=== PATIENT | female | born 2000 | race Hispanic/Latino ===

== ENCOUNTER 2019-10-24 17:18 | Emergency (ER) | payer OTHER ==
[2019-10-24 19:28] LABS: Urine Blood NEGATIVE (NEG); Urine Glucose NEGATIVE (NEG); Urine Protein NEGATIVE (NEG); Urine pH 7.5 (5.0-7.0)
[2019-10-24 19:52] LABS: Basophils % 0.6 % (0-1.3); Hematocrit 38.4 % (36.0-45.0); Lymphocytes % 21.1 % (15.3-44.8); MPV 7.7 fL (7.6-11.3); RBC Red Blood Cell Count 4.34 M/uL (3.86-4.86)
[2019-10-24 20:05] LABS: ALT/SGPT 24 U/L (12-78); AST/SGOT 25 U/L (15-37); Albumin 3.7 g/dL (3.4-5.0); Alkaline Phosphatase 96 U/L (45-117); BUN Blood Urea Nitrogen 8 mg/dL (7-18); Bicarbonate 25 mmol/L (21-32); Bilirubin Direct < 0.1 mg/dL (0-0.2); Bilirubin Total 0.3 mg/dL (0.2-1.0); Glucose Level 107 mg/dL (74-106); Lipase 67 U/L (73-393); Potassium 3.6 mmol/L (3.5-5.1); Protein, Total 7.2 g/dL (6.4-8.2); Sodium Level 139 mmol/L (136-145)
--- NOTE | 2019-10-24 21:22 | EDPHYS ---
Physician Documentation [facility] Name: Nan Paniagua Age: 19 yrs Sex: Female : 2000 Arrival Date: 10/24/2019 Time: 17:22 Bed 5 Private MD: out of town, doctor ED Physician Jesus Armenta HPI: 10/23 21:02 This 19 yrs old Female presents to ER via Ambulatory with complaints of tw4 Abdominal Pain. 21:16 The patient presents with abdominal pain right lower quadrant, in the left lower tw4 quadrant. Onset: The symptoms/episode began/occurred 2 week(s) ago. The symptoms do not radiate. Associated signs and symptoms: none. The symptoms are described as sharp. Modifying factors: The symptoms are alleviated by remaining still, the symptoms are aggravated by movement. Severity of pain: At its worst the pain was moderate in the emergency department the pain is unchanged. The patient has not experienced similar symptoms in the past. The patient has not recently seen a physician. 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 - Social history:: Smoking status: Patient reports the use of cigarette tobacco products, smokes one-half pack cigarettes per day. ROS: 21:16 Constitutional: Negative for fever, chills, and weight loss, Eyes: Negative for injury, tw4 pain, redness, and discharge, Cardiovascular: Negative for chest pain, palpitations, and edema, Respiratory: Negative for shortness of breath, cough, wheezing, and pleuritic chest pain, Back: Negative for injury and pain, MS/Extremity: Negative for injury and deformity, Skin: Negative for injury, rash, and discoloration, Neuro: Negative for headache, weakness, numbness, tingling, and seizure. 21:16 Abdomen/GI: Positive for abdominal pain. 21:17 : Positive for urinary symptoms. tw4 Exam: 21:17 Constitutional: This is a well developed, well nourished patient who is awake, alert, tw4 and in no acute distress. Head/Face: Normocephalic, atraumatic. Chest/axilla: Normal chest wall appearance and motion. Nontender with no deformity. No lesions are appreciated. Cardiovascular: Regular rate and rhythm with a normal S1 and S2. No gallops, murmurs, or rubs. Normal PMI, no JVD. No pulse deficits. Respiratory: Lungs have equal breath sounds bilaterally, clear to auscultation and percussion. No rales, rhonchi or wheezes noted. No increased work of breathing, no retractions or nasal flaring. Back: No spinal tenderness. No costovertebral tenderness. Full range of motion. MS/ Extremity: Pulses equal, no cyanosis. Neurovascular intact. Full, normal range of motion. Neuro: Awake and alert, GCS 15, oriented to person, place, time, and situation. Cranial nerves II-XII grossly intact. Motor strength 5/5 in all extremities. Sensory grossly intact. Cerebellar exam normal. Normal gait. 21:17 Abdomen/GI: Inspection: abdomen appears normal, Bowel sounds: normal, Palpation: moderate abdominal tenderness, in the right lower quadrant and left lower quadrant. Vital Signs: 18:02 BP 105 / 66; Pulse 74; Resp 15 S; Temp 97.4(TE); Pulse Ox 100% on R/A; Weight 61.23 kg ca1 (R); Height 5 ft. 3 in. (160.02 cm) (R); Pain 6/10; 19:05 BP 110 / 63; Pulse 70; Resp 18; Pulse Ox 99% on R/A; ea 20:44 BP 103 / 56; Pulse 58; Resp 18; Pulse Ox 99% ; ea 21:20 BP 106 / 59; Pulse 60; Resp 18; Pulse Ox 98% on R/A; ea 18:02 Body Mass Index 23.91 (61.23 kg, 160.02 cm) ca1 MDM: 19:06 Patient medically screened. tw4 21:18 Differential diagnosis: Dysmenorrhea, Ectopic , non-specific abd pain, Ovarian tw4 Torsion, Tubal Ovarian Abcess, Ureterolithiasis, urinary tract infection. Data reviewed: vital signs, nurses notes. Data interpreted: Pulse oximetry: Interpretation: normal. Test interpretation: by ED physician or midlevel provider: not applicable. Counseling: I had a detailed discussion with the patient and/or guardian regarding: the historical points, exam findings, and any diagnostic results supporting the discharge/admit diagnosis. Special discussion: Based on the patient's Hx, exam, and Dx evaluation, there is no indication for emergent surgery or inpatient Tx. It is understood by the patient/guardian that if the Sx's persist or worsen they need to return immediately for re-evaluation. I discussed with the patient/guardian in detail that at this point there is no indication for admission to the hospital. It is understood, however, that if the symptoms persist or worsen the patient needs to return immediately for re-evaluation. 10/23 19:03 Order name: Urine --Ancillary (enter results); Complete Time: 21:29 tt3 10/23 19:03 Order name: Urine Dipstick--Ancillary (enter results); Complete Time: 21:29 tt3 10/23 19:07 Order name: Basic Metabolic Panel; Complete Time: 21:29 10/23 19:07 Order name: CBC with Diff; Complete Time: 21:29 ea 10/23 19:07 Order name: Hepatic Function; Complete Time: 21:29 ea 10/23 19:07 Order name: Lipase; Complete Time: 21:29 10/23 19:07 Order name: Basic Metabolic Panel 10/23 19:07 Order name: CBC with Diff 10/23 19:07 Order name: Hepatic Function 10/23 19:07 Order name: Abdomen 1 View (KUB) XRAY 10/23 20:00 Order name: CT Abd/Pelvis - IV Contrast Only 10/23 19:07 Order name: IV Saline Lock; Complete Time: 19:38 tw10/23 19:07 Order name: Labs collected and sent; Complete Time: 19:38 Administered Medications: 21:18 Drug: TORadol 30 mg Route: IVP; Site: right antecubital; ea 21:35 Follow up: Response: No adverse reaction ea Disposition: 10/24/19 21:21 Discharged to Home. Impression: Other ovarian cysts. - Condition is Stable. - Discharge Instructions: Ovarian Cyst. - Prescriptions for Ibuprofen 800 mg Oral Tablet - take 1 tablet by ORAL route every 8 hours As needed take with food; 30 tablet. Tylenol- Codeine #3 300-30 mg Oral Tablet - take 2 tablet by ORAL route every 6 hours As needed; 6 tablet. - Medication Reconciliation Form, Thank You Letter, Antibiotic Education, Prescription Opioid Use form. - Follow up: Private Physician; When: Upon discharge from the Emergency Department; Reason: Recheck today's complaints, Continuance of care, Re-evaluation by your physician. - Problem is new. - Symptoms have improved. Signatures: Dispatcher [employer] Ethel Cordero RN RN ea Wadley, Terrence, MD MD tw4 Karen Gonzalez RN RN ca1 Corrections: (The following items were deleted from the chart) 19:09 19:08 LIPASE+C.LAB.BRZ ordered. [facility] 19:38 19:07 IV Saline Lock ordered. mirna 19:38 19:07 Labs collected and sent ordered. mirna bradley 21:17 21:02 The patient presents with abdominal pain in the epigastric area, tw4 tw4 21:36 21:21 10/24/2019 21:21 Discharged to Home. Impression: Other ovarian cysts. Condition ea is Stable. Forms are Medication Reconciliation Form, Thank You Letter, Antibiotic Education, Prescription Opioid Use. Follow up: Private Physician; When: Upon discharge from the Emergency Department; Reason: Recheck today's complaints, Continuance of care, Re-evaluation by your physician. Problem is new. Symptoms have improved. tw4
--- NOTE | 2019-10-24 21:22 | ER ---
Nurse's Notes [facility] Name: Nan Paniagua Age: 19 yrs Sex: Female : 2000 Arrival Date: 10/24/2019 Time: 17:22 Bed 5 Private MD: out of town, doctor Diagnosis: Other ovarian cysts Presentation: 10/23 18:02 Chief complaint: Patient states: Lower abdominal and groin area pain about 2 weeks now. ca1 It has gotten worse and starting to get unbearable. Denies V/Diarrhea. Reports Nausea. Reports burning with urination. Denies fever. Coronavirus screen: Proceed with normal triage. Patient denies a cough. Patient denies shortness of breath or difficulty breathing. Patient denies measured and/or subjective temperature greater than 100.4F prior to today's visit. Patient denies travel on a cruise ship or to a country the [facility] currently lists as an affected area. Patient denies contact with known and/or suspected case of COVID-19. Ebola Screen: Patient negative for fever greater than or equal to 101.5 degrees Fahrenheit, and additional compatible Ebola Virus Disease symptoms Patient denies exposure to infectious person. Patient denies travel to an Ebola-affected area in the 21 days before illness onset. No symptoms or risks identified at this time. Initial Sepsis Screen: Does the patient meet any 2 criteria? No. Patient's initial sepsis screen is negative. Does the patient have a suspected source of infection? No. Patient's initial sepsis screen is negative. Risk Assessment: Do you want to hurt yourself or someone else? Patient reports no desire to harm self or others. Onset of symptoms was October 24, 2019. 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 - Social history:: Smoking status: Patient reports the use of cigarette tobacco products, smokes one-half pack cigarettes per day. Screenin:04 Abuse screen: Denies threats or abuse. Nutritional screening: No deficits noted. ea Tuberculosis screening: No symptoms or risk factors identified. Fall Risk None identified. Assessment: 19:03 General: Appears in no apparent distress. Behavior is appropriate for age. Pain: ea Complains of pain in left lower quadrant. Neuro: Level of Consciousness is awake, alert, obeys commands, Oriented to person, place, time, situation. Cardiovascular: Patient's skin is warm and dry. GI: Bowel sounds present X 4 quads. Abdomen is tender to palpation in left lower quadrant Reports constipation. : Reports burning with urination. Derm: Skin is pink, warm \T\ dry. 20:15 Reassessment: Patient and/or family updated on plan of care and expected duration. Pain ea level reassessed. Patient is alert, oriented x 3, equal unlabored respirations, skin warm/dry/pink. Pt taken to CT. 21:34 Reassessment: Patient and/or family updated on plan of care and expected duration. Pain ea level reassessed. Patient is alert, oriented x 3, equal unlabored respirations, skin warm/dry/pink. Discharge instruction given to patient, verbalized the understanding of instruction. Pt left ED ambulatory tolerating well. Vital Signs: 18:02 BP 105 / 66; Pulse 74; Resp 15 S; Temp 97.4(TE); Pulse Ox 100% on R/A; Weight 61.23 kg ca1 (R); Height 5 ft. 3 in. (160.02 cm) (R); Pain 6/10; 19:05 BP 110 / 63; Pulse 70; Resp 18; Pulse Ox 99% on R/A; ea 20:44 BP 103 / 56; Pulse 58; Resp 18; Pulse Ox 99% ; ea 21:20 BP 106 / 59; Pulse 60; Resp 18; Pulse Ox 98% on R/A; ea 18:02 Body Mass Index 23.91 (61.23 kg, 160.02 cm) ca1 ED Course: 17:22 Patient arrived in ED. mr 17:22 out of town, doctor is Private Physician. mr 18:04 Triage completed. ca1 18:05 Arm band placed on right wrist. ca1 18:58 Mekhi Renner, RN is Primary Nurse. bp 19:04 Patient has correct armband on for positive identification. Bed in low position. Call ea light in reach. Side rails up X 1. 19:06 Jesus Armenta MD is Attending Physician. tw4 19:54 Abdomen 1 View (KUB) XRAY In Process Unspecified. EDMS 20:30 CT Abd/Pelvis - IV Contrast Only In Process Unspecified. EDMS 21:30 IV discontinued, intact, bleeding controlled, No redness/swelling at site. Pressure ea dressing applied. 21:35 No provider procedures requiring assistance completed. ea Administered Medications: 21:18 Drug: TORadol 30 mg Route: IVP; Site: right antecubital; ea 21:35 Follow up: Response: No adverse reaction ea Outcome: 21:21 Discharge ordered by . tw4 21:35 Discharged to home ambulatory. ea 21:35 Condition: stable 21:35 Discharge instructions given to patient, Instructed on discharge instructions, follow up and referral plans. Demonstrated understanding of instructions, follow-up care. 21:36 Patient left the ED. ea Signatures: Dispatcher [employer] [facility] Shakeel Shanelle HenriquezEthel, RN RN Mekhi White, RN RN Jesus Campos MD MD tw4 Karen Gonzalez RN RN ca1
[2019-10-24] MEDS ORDERED: KETOROLAC 30 MG/ML INJ ONE (21:26)
[2019-10-24 21:44] VITALS: TEMP 97.4
[2019-10-24 21:48] VITALS: BP 106/59; O2SAT 98
--- NOTE | 2019-10-24 22:07 | RAD REPORT ---
EXAM DESCRIPTION: RAD - Abdomen 1 View (KUB) - 10/24/2019 9:10 pm CLINICAL HISTORY: Abdomen pain. FINDINGS: The bowel gas pattern is unremarkable. A moderate amount of stool is present throughout th e colon. No abnormal calcification is displayed
--- NOTE | 2019-10-26 16:35 | RAD REPORT ---
EXAM DESCRIPTION: CT - Abdomen Pelvis W Contrast - 10/25/2019 5:24 am CLINICAL HISTORY: The patient is 19 years old and is Female; ABD PAIN TECHNIQUE: Axial computed tomography images of the abdomen and pelvis with intravenous contrast. S agittal and coronal reformatted images were created and reviewed. This CT exam was performed using one or more of the following dose reduction techniques: automated exposure control, adjustment of t he mA and/or kV according to patient size, and/or use of iterative reconstruction technique. DLP: 911 mGy*cm COMPARISON: None. FINDINGS: LUNG BASES: Lung bases are clear. HEART: Visualized heart is normal. ABDOMEN: LIVER: Unremarkable. No mass. GALLBLADDER AND BILE DUCTS: Unremarkable. No calcified stones. No ductal dilation. PANCREAS: Unremarkable. No mass. No ductal dilation. SPLEEN: Unremarkable. No splenomegaly. ADRENALS: Unremarkable. No mass. KIDNEYS AND URETERS: Unremarkable. No solid mass. No hydronephrosis. STOMACH AND BOWEL: Unremarkable. No obstruction. No mucosal thickening. PELVIS: APPENDIX: No findings to suggest acute appendicitis. BLADDER: Bladder is decompressed. REPRODUCTIVE: 2.1 cm left ovarian cyst. ABDOMEN and PELVIS: INTRAPERITONEAL SPACE: Small amount of free pelvic fluid. No free air. BONES/JOINTS: No acute fracture. No dislocation. SOFT TISSUES: Unremarkable. VASCULATURE: Unremarkable. No abdominal aortic aneurysm. LYMPH NODES: Unremarkable. No enlarged lymph nodes. IMPRESSION: 1. No acute abdominal or pelvic abnormality. 2. Physiologic pelvic changes and 2.1 cm left ovarian cyst. No follow-up imaging is recommended. Ref erence: US recommendations based on Radiology 2010 Dec;256(3):943-54; CT/MR recommendations based on J Am Michelle Radiol 2013;10:675-681. Electronically signed by: Aravind Paz DO 10/24/2019 11:27 PM CDT Due to temporary technical issues with the PACS/Fluency reporting system, reports are being signed by the in house radiologist without review as a courtesy to ensure prompt reporting. The interpreting r adiologist is fully responsible for the content of the report.
== END 2019-10-24 21:36 | disposition home or self-care (01) ==
LOC: ER 17:18
DX: N83.299 Other ovarian cyst, unspecified side (principal); F17.210 Nicotine dependence, cigarettes, uncomplicated; F34.1 Dysthymic disorder
CPT/HCPCS: 85025; 80048; 36415; 81025; 80076; 81003; 83690; 74177; 74018; 96374; 99283; Q9967